=== PATIENT | male | born 1985 | race Caucasian/White ===

== ENCOUNTER 2017-06-12 15:08 | Emergency (ER) | payer OTHER ==
[2017-06-12 15:16] VITALS: BP 153/81
--- NOTE | 2017-06-12 15:48 | ER Document Report ---
ED General - General Chief Complaint: Shoulder Pain Stated Complaint: LEFT SHOULDER PAIN Time Seen by Provider: 06/12/17 15:43 Information source: Patient Notes: Patient presents with left shoulder pain. He states it is currently mild. He states while he was sleeping he felt it dislocate and then relocated. He states that this has happened before. The most recent time was 12 years ago. No other recent trauma. He denies any other problems or concerns. The pain is worse with movement and better with rest. The pain does radiate down the left arm. It is sharp. TRAVEL OUTSIDE OF THE [place] IN LAST 30 DAYS: No - Related Data Allergies/Adverse Reactions: No Known Allergies Allergy (Verified 06/12/17 15:12) Past Medical History - General Information source: Patient - Social History Smoking Status: Never Smoker Chew tobacco use (# tins/day): Yes Frequency of alcohol use: Social Drug Abuse: None Family History: Reviewed & Not Pertinent Patient has suicidal ideation: No Patient has homicidal ideation: No Renal/ Medical History: Denies: Hx Peritoneal Dialysis Review of Systems - Review of Systems Constitutional: denies: Chills, Fever Cardiovascular: denies: Chest pain, Palpitations Respiratory: denies: Cough, Short of breath Skin: denies: Change in color, Rash Physical Exam - Vital signs Vitals: Temp Pulse Resp BP Pulse Ox 98.2 F 93 17 153/81 H 97 06/12/17 15:13 06/12/17 15:13 06/12/17 15:13 06/12/17 15:13 06/12/17 15:13 Interpretation: Normal, Hypertensive - General General appearance: Appears well, Alert - Respiratory Respiratory status: No respiratory distress Chest status: Nontender Breath sounds: Normal Chest palpation: Normal - Cardiovascular Rhythm: Regular Heart sounds: Normal auscultation Murmur: No - Extremities General upper extremity: Normal inspection, Nontender, Normal color, Normal ROM , Normal temperature General lower extremity: Normal inspection, Nontender, Normal color, Normal ROM , Normal temperature, Normal weight bearing. No: Vi's sign - Neurological Neuro grossly intact: Yes Cognition: Normal Orientation: AAOx4 [place] Coma Scale Eye Opening: Spontaneous Brian Coma Scale Verbal: Oriented [place] Coma Scale Motor: Obeys Commands Brian Coma Scale Total: 15 Speech: Normal Motor strength normal: LUE, RUE, LLE, RLE Sensory: Normal - Psychological Associated symptoms: Normal affect, Normal mood - Skin Skin Temperature: Warm Skin Moisture: Dry Skin Color: Normal Course - Re-evaluation Re-evalutation: 06/12/17 15:45 Exam of patient's left shoulder is unremarkable. He has a full range of motion. He states he does not desire an x-ray. - Vital Signs Vital signs: Temp Pulse Resp BP Pulse Ox 98.2 F 93 17 153/81 H 97 06/12/17 15:13 06/12/17 15:13 06/12/17 15:13 06/12/17 15:13 06/12/17 15:13 Discharge - Discharge Clinical Impression: Left shoulder pain Condition: Stable Disposition: HOME, SELF-CARE Instructions: Shoulder Injury ([facility]) Additional Instructions: Please call orthopedics as soon as possible to arrange follow-up Prescriptions: Hydrocodone/Acetaminophen [[place] 5-325 Tablet] 1 each PO Q6 PRN #6 tablet PRN Reason: Forms: Return to Work Referrals: WESLEY VILLAFANA MD [ACTIVE STAFF] - Follow up as needed
== END 2017-06-12 15:56 | disposition home or self-care (01) ==
LOC: ER 15:08
DX: M25.512 Pain in left shoulder (principal)
CPT/HCPCS: 99283